=== PATIENT | male | born 1965 | race African-American/Black ===

== ENCOUNTER 2019-06-16 19:42 | Emergency (ER) | payer SELFPAY ==
[~2019-06-16] VITALS: Ht 177.8 cm; Wt 129.5 kg
[2019-06-16] MEDS ORDERED: DIAZEPAM 5 MG/ML, 10ML VIAL IV ONE (20:30)
[2019-06-16] MEDS ORDERED: SODIUM CHLORIDE 0.9% 1,000ML IVBOLUS ONE (20:30)
[2019-06-16] MEDS ORDERED: SODIUM CHLORIDE FLUSH 10ML SYR IVF ONE (20:30)
[2019-06-16 20:34] LABS: BASOPHILS # (AUTO) 0.05 x10^3/uL (0-0.1); BASOPHILS % (AUTO) 1 % (0-1); EOSINOPHILS # (AUTO) 0.22 x10^3/uL (0-0.4); EOSINOPHILS % (AUTO) 2 % (1-7); LYMPHOCYTES # (AUTO) 2.42 x10^3/uL (1-3.4); LYMPHOCYTES % (AUTO) 25 % (22-44); MD NO; MEAN CORPUSCULAR HGB CONC 34.6 g/dL (33.2-36.2); MEAN CORPUSCULAR VOLUME 80.8 fL (81-97); MEAN PLATELET VOLUME 9.8 fL (7.4-10.4); MONOCYTES # (AUTO) 0.79 x10^3/uL (0.2-0.8); MONOCYTES % (AUTO) 8 % (2-9); NEUTROPHILS # (AUTO) 6.26 x10^3/uL (1.8-6.8); NEUTROPHILS % (AUTO) 64 % (42-75); PLATELET COUNT 223 x10^3/uL (130-400); RED BLOOD COUNT 4.82 x10^6/uL (4.38-5.82); RED CELL DISTRIBUTION WIDTH 13.8 % (9.4-14.8)
[2019-06-16] MEDS ORDERED: DIAZEPAM 5 MG/ML, 2ML ONE (20:35)
[2019-06-16 20:44] LABS: ALBUMIN 3.9 g/dL (3.4-5.0); ANION GAP 15 mmol/L (5-15); CALCIUM 8.4 mg/dL (8.5-10.1); CHLORIDE 97 mmol/L (98-107)
[2019-06-16 20:46] LABS: ALKALINE PHOSPHATASE 111 U/L (45-117); BILIRUBIN,TOTAL 0.6 mg/dL (0.2-1.0); TOTAL PROTEIN 7.5 g/dL (6.4-8.2)
[2019-06-16] MEDS ORDERED: PLEASE ENTER ALLERGIES MC SCH (21:00)
--- NOTE | 2019-06-16 21:15 | NUR ---
Pt now sleeping after Valium. IVF continue to infuse. Pt has intermittent SpO2 readings below 90% but not for more than a few seconds at a time.
[2019-06-16 21:49] LABS: ALANINE AMINOTRANSFERASE 92 U/L (12-78)
--- NOTE | 2019-06-16 22:45 | NUR ---
Pt now awake and using a urinal. Pt states the cramping returns when he rolls on his side.
--- NOTE | 2019-06-16 23:14 | NUR ---
Pt now sleeping again.
[2019-06-17] MEDS ORDERED: CYCLOBENZAPRINE 10 MG TABLET ONE (01:13)
[2019-06-17] MEDS ORDERED: CYCLOBENZAPRINE 10 MG TABLET PO ONE (01:30)
--- NOTE | 2019-06-17 01:53 | NUR ---
BREAK RN: PT RESTING WITH EYES CLOSED, SNORING. NADN, MONITORS IN PLACE, CALL LIGHT WITHIN REACH. [facility]WAIT[facility]
--- NOTE | 2019-06-17 02:32 | NUR ---
Pt discharged with cab voucher. Pt stated "[facility]". Pt instructed on use of the cab voucher and given discharge paperwork. Pt ambulatory in room at discharge without difficulty.
[2019-06-17 02:33] VITALS: BP 129/71
== END 2019-06-17 02:35 | disposition home or self-care (01) ==
LOC: ED 06-17 01:31
DX: R10.84 Generalized abdominal pain (principal); E11.65 Type 2 diabetes mellitus with hyperglycemia; R74.8 Abnormal levels of other serum enzymes; E86.0 Dehydration; G89.29 Other chronic pain; I10 Essential (primary) hypertension; R00.0 Tachycardia, unspecified; E11.9 Type 2 diabetes mellitus without complications; E78.5 Hyperlipidemia, unspecified; F17.210 Nicotine dependence, cigarettes, uncomplicated
CPT/HCPCS: 36415; 80053; 80307; 83690; 83735; 85025; 93005; 96361; 96374; 99285; J3360; J7030; 99284